=== PATIENT | male | born 1975 | race Caucasian/White ===

== ENCOUNTER 2020-10-16 10:47 | Emergency (ER) | payer MEDICAID, OTHER, SELFPAY ==
--- NOTE | ~2020-10-16 | XR_ITS ---
EXAMINATION: XR LUMBOSACRAL SPINE CLINICAL INFORMATION: Low back pain COMPARISON: None TECHNIQUE: Three views of the lumbosacral spine. FINDINGS: There is normal lumbar segmentation with 5 nonrib-bearing lumbar vertebrae of normal height and normal lumbar lordosis. There is no lumbar vertebral compression, spondylolisthesis, disc narrowing, or destructive process. There is mild anterior vertebral spurring L4 and L5. The SI joints and visualized sacrum are unremarkable. Visualized bowel gas unremarkable.. XR/XR lumbar spine 2-3V IMPRESSION: Unremarkable examination.
[2020-10-16 11:46] VITALS: BP 129/93; PULSE 100; RESP 18; TEMP 36.6; O2SAT 98; BMI 30.9
[2020-10-16 11:59] LABS: Glucose, Whole Blood 381 mg/dL (60-115)
[2020-10-16 12:03] LABS: Glucose Urine UA >=1000 MG/DL (NEG); Leukocyte Esterase Urine NEG (NEG); Nitrite Urine NEG (NEG); Urine Blood NEG (NEG); Urine Ketones NEG (NEG); Urine Protein NEG (NEG-TRACE)
[2020-10-16 12:04] LABS: Appearance Urine CLEAR; Color Urine YELLOW
[2020-10-16 12:15] LABS: RBC Urine 0-2 /HPF (0); Squamous Epithelial Cell Urine 1+ /LPF; WBC Urine 0-2 /HPF (0-4)
--- NOTE | 2020-10-16 12:55 | ED_ITS ---
HPI - General Adult General Chief complaint: General Medical Stated complaint: body pain Time Seen by Provider: 10/16/20 12:49 Source: patient Mode of arrival: ambulatory Limitations: no limitations History of Present Illness HPI narrative: 44 yo male 3 years of polyuria, polydipsia, weight loss, low back pain, tingling - found to have BS in 300s, did not have health insurance complaint: body aches Onset (ago): year(s) (3) Severity: moderate Quality: other (feels tingly) Pain Consistency: constant Relieving factors: none Exacerbating factors: none Associated symptoms: other (polyuria, weight loss, polydipsia, low back pain, feels his body is tingly, also wants STI testing but no symptoms) Treatments prior to arrival: none Related Data Previous Rx's Medication Instructions Recorded metformin 500 mg PO BID 30 Days #60 tab 10/16/20 Allergies Allergy/AdvReac Type Severity Reaction Status Date / Time Penicillins Allergy Unknown Verified 10/16/20 11:51 Review of Systems Review of Systems: Constitutional : pos Weight loss, No Fever, No Chills, No Fatigue, No Malaise ENT/Mouth : No sore throat, No Rhinorrhea Eyes: No Eye Pain, No Swelling, No Redness Cardiovascular : No Chest Pain, No SOB, No Dyspnea on Exertion, No Orthopnea, No Edema, No Palpitations Respiratory : No Cough, No Sputum, No Wheezing Gastrointestinal : No Nausea, No Vomiting, No Diarrhea, No Constipation, No abdominal Pain, No Hematochezia, No Melena Genitourinary : No Dysuria, No Urinary Frequency, No Hematuria, Musculoskeletal : No joint pain, pos Myalgias, No Joint Swelling Skin : No Skin Lesions, No rash Neuro : No Weakness, No Numbness, No Dizziness, No Headache, pos parasthesias Psych : No Anxiety/Panic, No Depression Heme/Lymph: No Bruising, No Bleeding,No Lymphadenopathy Endocrine : pos Polyuria, pos Polydipsia All other systems reviewed and are negative [facility] Past Medical History Attestation statement: The following information was validated with the patient. Medical History No known health problems Social History Social History (Updated 10/16/20 @ 13:30 by Elvia Lockhart DO) Alcohol intake: current Smoking Status: Never smoker Advance Directives: No Advance Directives Information Provided: No Physical Exam Vital Signs: Vital Signs: Last Vital Signs Temp 98 F 10/16/20 11:46 Pulse 100 10/16/20 11:46 Resp 18 10/16/20 11:46 BP 129/93 H 10/16/20 11:46 Pulse Ox 98 10/16/20 11:46 Body Mass Index 30.9 Appearance: Alert. Oriented X3. No acute distress. Anxious Eyes: Pupils equal, round and reactive to light. ENT: Pharynx normal. Neck: Normal inspection. Neck supple. CVS: Normal heart rate and rhythm. Pulses normal. Respiratory: No respiratory distress. Breath sounds normal. Abdomen: Soft and nontender. Skin: Skin warm and dry. Normal skin color. Normal skin turgor. Extremities: No lower extremity edema. No calf ttp Neuro: Oriented X 3. No motor deficit. No sensory deficit. Course Course Course Narrative: CM involved to help patient with insurance given no PCP will start on metformin at this time can go to [facility] per for OTC supplies Medical Decision Making MDM Narrative Medical decision making narrative: 44 yo male 3 years of polyuria, polydipsia, weight loss, low back pain, tingling - found to have BS in 300s, did not have health insurance at this time will need labs, hemoglobin A1c, lumbar spine films, likely start on DM medications and refer to PCP, he is requesting STI testing from a remote unprotected sexual encounter without symptoms, dispo per results and findings. Lab Data Result diagrams: 10/16/20 13:23 10/16/20 13:23 Labs: Lab Results 10/16/20 10/16/20 10/16/20 Range/Units 11:45 11:54 13:18 WBC (4.8-10.8) X10*3/uL RBC (4.60-5.80) X10*6/uL Hgb (14.0-18.0) g/dl Hct (42-52) % MCV (80-98) fL MCH (27.0-33.0) pg MCHC (31.0-36.0) g/dl RDW (11.0-16.0) % Plt Count (160-400) X10*3/uL MPV (9.4-12.4) fL Immature Gran % (Auto) (0.0-0.4) % Neut % (Auto) (45-73) % Lymph % (Auto) (20-40) % [place] % (Auto) (2-11) % Eos % (Auto) (0-4) % Baso % (Auto) (0-2) % Lymph # (Auto) (1.2-4.9) X10*3/uL [place] # (Auto) (0.1-1.2) X10*3/uL Eos # (Auto) (0.0-0.4) X10*3/uL Baso # (Auto) (0.0-0.2) X10*3/uL Abs Immat Gran (auto) (0.00-0.03) X10*3/uL Absolute Neuts (auto) (2.0-8.3) X10*3/uL Absolute Nucleated RBC (0.0-0.012) X10*3/uL Nucleated RBC % (auto) (0.0-0.2) /100WBC Hold Blue Top Sodium (135-145) mmol/L Potassium (3.3-5.1) mmol/L Chloride (96-108) mmol/L Carbon Dioxide (22-29) mmol/L Anion Gap (12-20) BUN (9-16) mg/dL Creatinine (0.5-1.4) mg/dL Estim Creat Clear Calc Estimated GFR POC Glucose 381 H* (60-115) mg/dL Random Glucose (60-115) mg/dL Estimat Average Glucose mg/dL Hemoglobin A1c % % Calcium (8.4-10.2) mg/dL Magnesium (1.6-2.6) mg/dL Total Bilirubin (0.0-1.0) mg/dL Direct Bilirubin (0.0-0.5) mg/dL AST (5-37) U/L ALT (0-40) U/L Alkaline Phosphatase (39-117) U/L Total Creatine Kinase (38-174) U/L Total Protein (6.5-8.0) g/dL Albumin (3.5-5.0) g/dL Lipase (8-78) U/L Urine Color YELLOW Urine Appearance CLEAR Urine pH 6.0 (5.0-8.0) Ur Specific [place] 1.020 (1.005-1.025) Urine Protein NEG (NEG-TRACE) MG/DL Urine Glucose (UA) >=1000 H (NEG) MG/DL Urine Ketones NEG (NEG) MG/DL Urine Blood NEG (NEG) Urine Nitrite NEG (NEG) Ur Leukocyte Esterase NEG (NEG) Urine RBC 0-2 (0) /HPF Urine WBC 0-2 (0-4) /HPF Ur Squamous Epith Cells 1+ /LPF Urine Bacteria NONE /LPF Acetone, Qual (Negative) COVID-19 (YAN) Negative (Negative) COVID-19 Clin Com See Note 10/16/20 10/16/20 10/16/20 Range/Units 13:23 13:23 13:23 WBC 8.0 (4.8-10.8) X10*3/uL RBC 6.13 H (4.60-5.80) X10*6/uL Hgb 17.7 (14.0-18.0) g/dl Hct 51.2 (42-52) % MCV 83.5 (80-98) fL MCH 28.9 (27.0-33.0) pg MCHC 34.6 (31.0-36.0) g/dl RDW 11.5 (11.0-16.0) % Plt Count 330 (160-400) X10*3/uL MPV 9.6 (9.4-12.4) fL Immature Gran % (Auto) 1.0 H (0.0-0.4) % Neut % (Auto) 53.7 (45-73) % Lymph % (Auto) 35.4 (20-40) % [place] % (Auto) 6.8 (2-11) % Eos % (Auto) 1.8 (0-4) % Baso % (Auto) 1.3 (0-2) % Lymph # (Auto) 2.8 (1.2-4.9) X10*3/uL [place] # (Auto) 0.5 (0.1-1.2) X10*3/uL Eos # (Auto) 0.1 (0.0-0.4) X10*3/uL Baso # (Auto) 0.1 (0.0-0.2) X10*3/uL Abs Immat Gran (auto) 0.08 H (0.00-0.03) X10*3/uL Absolute Neuts (auto) 4.3 (2.0-8.3) X10*3/uL Absolute Nucleated RBC 0.000 (0.0-0.012) X10*3/uL Nucleated RBC % (auto) 0.0 (0.0-0.2) /100WBC Hold Blue Top SEE NOTE Sodium (135-145) mmol/L Potassium (3.3-5.1) mmol/L Chloride (96-108) mmol/L Carbon Dioxide (22-29) mmol/L Anion Gap (12-20) BUN (9-16) mg/dL Creatinine (0.5-1.4) mg/dL Estim Creat Clear Calc Estimated GFR POC Glucose (60-115) mg/dL Random Glucose (60-115) mg/dL Estimat Average Glucose 338 mg/dL Hemoglobin A1c % 13.4 % Calcium (8.4-10.2) mg/dL Magnesium (1.6-2.6) mg/dL Total Bilirubin (0.0-1.0) mg/dL Direct Bilirubin (0.0-0.5) mg/dL AST (5-37) U/L ALT (0-40) U/L Alkaline Phosphatase (39-117) U/L Total Creatine Kinase (38-174) U/L Total Protein (6.5-8.0) g/dL Albumin (3.5-5.0) g/dL Lipase (8-78) U/L Urine Color Urine Appearance Urine pH (5.0-8.0) Ur Specific [place] (1.005-1.025) Urine Protein (NEG-TRACE) MG/DL Urine Glucose (UA) (NEG) MG/DL Urine Ketones (NEG) MG/DL Urine Blood (NEG) Urine Nitrite (NEG) Ur Leukocyte Esterase (NEG) Urine RBC (0) /HPF Urine WBC (0-4) /HPF Ur Squamous Epith Cells /LPF Urine Bacteria /LPF Acetone, Qual (Negative) COVID-19 (YAN) (Negative) COVID-19 Clin Com 10/16/20 Range/Units 13:23 WBC (4.8-10.8) X10*3/uL RBC (4.60-5.80) X10*6/uL Hgb (14.0-18.0) g/dl Hct (42-52) % MCV (80-98) fL MCH (27.0-33.0) pg MCHC (31.0-36.0) g/dl RDW (11.0-16.0) % Plt Count (160-400) X10*3/uL MPV (9.4-12.4) fL Immature Gran % (Auto) (0.0-0.4) % Neut % (Auto) (45-73) % Lymph % (Auto) (20-40) % [place] % (Auto) (2-11) % Eos % (Auto) (0-4) % Baso % (Auto) (0-2) % Lymph # (Auto) (1.2-4.9) X10*3/uL [place] # (Auto) (0.1-1.2) X10*3/uL Eos # (Auto) (0.0-0.4) X10*3/uL Baso # (Auto) (0.0-0.2) X10*3/uL Abs Immat Gran (auto) (0.00-0.03) X10*3/uL Absolute Neuts (auto) (2.0-8.3) X10*3/uL Absolute Nucleated RBC (0.0-0.012) X10*3/uL Nucleated RBC % (auto) (0.0-0.2) /100WBC Hold Blue Top Sodium 134 L (135-145) mmol/L Potassium 4.8 (3.3-5.1) mmol/L Chloride 98 (96-108) mmol/L Carbon Dioxide 26 (22-29) mmol/L Anion Gap 15 (12-20) BUN 12 (9-16) mg/dL Creatinine 0.99 (0.5-1.4) mg/dL Estim Creat Clear Calc 87.8 Estimated GFR > 60 POC Glucose (60-115) mg/dL Random Glucose 331 H (60-115) mg/dL Estimat Average Glucose mg/dL Hemoglobin A1c % % Calcium 9.8 (8.4-10.2) mg/dL Magnesium 2.2 (1.6-2.6) mg/dL Total Bilirubin 0.7 (0.0-1.0) mg/dL Direct Bilirubin 0.2 (0.0-0.5) mg/dL AST 17 (5-37) U/L ALT 40 (0-40) U/L Alkaline Phosphatase 104 (39-117) U/L Total Creatine Kinase 52 (38-174) U/L Total Protein 8.3 H (6.5-8.0) g/dL Albumin 4.9 (3.5-5.0) g/dL Lipase 14 (8-78) U/L Urine Color Urine Appearance Urine pH (5.0-8.0) Ur Specific [place] (1.005-1.025) Urine Protein (NEG-TRACE) MG/DL Urine Glucose (UA) (NEG) MG/DL Urine Ketones (NEG) MG/DL Urine Blood (NEG) Urine Nitrite (NEG) Ur Leukocyte Esterase (NEG) Urine RBC (0) /HPF Urine WBC (0-4) /HPF Ur Squamous Epith Cells /LPF Urine Bacteria /LPF Acetone, Qual Negative (Negative) COVID-19 (YAN) (Negative) COVID-19 Clin Com Discharge Plan Discharge Clinical Impression: Diabetes Qualifiers: Diabetes mellitus type: type 2 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
[2020-10-16] MEDS: 0.9 % Sodium Chloride 1,000 ML 999 ML IVCONT (13:25)
[2020-10-16 13:35] LABS: MANUAL DIFF FLAG NO
[2020-10-16 13:36] LABS: Basophils Absolute Auto 0.1 X10*3/uL (0.0-0.2); Basophils Percent Auto 1.3 % (0-2); Eosinophils Absolute Auto 0.1 X10*3/uL (0.0-0.4); Eosinophils Percent Auto 1.8 % (0-4); Hematocrit 51.2 % (42-52); Hemoglobin 17.7 g/dl (14.0-18.0); Imm Gran Abs Auto 0.08 X10*3/uL (0.00-0.03); Lymphocytes Absolute Auto 2.8 X10*3/uL (1.2-4.9); Lymphocytes Percent Auto 35.4 % (20-40); Mean Corpuscular HGB Conc 34.6 g/dl (31.0-36.0); Mean Corpuscular Hemoglobin 28.9 pg (27.0-33.0); Mean Corpuscular Volume 83.5 fL (80-98); Mean Platelet Volume 9.6 fL (9.4-12.4); Monocytes Absolute Auto 0.5 X10*3/uL (0.1-1.2); Monocytes Percent Auto 6.8 % (2-11); Neutrophils Absolute Auto 4.3 X10*3/uL (2.0-8.3); Neutrophils Percent Auto 53.7 % (45-73); Platelet Count 330 X10*3/uL (160-400); Red Blood Count 6.13 X10*6/uL (4.60-5.80); Red Cell Distribution Width 11.5 % (11.0-16.0)
[2020-10-16 13:53] LABS: COVID-19 Test Negative (Negative); IDNOW Serial# 9DD0AD1C
[2020-10-16 14:03] LABS: Estimated Average Glucose 338 mg/dL; Hemoglobin A1c % 13.4 %
[2020-10-16 14:05] LABS: Alanine Aminotransferase 40 U/L (0-40); Albumin Level 4.9 g/dL (3.5-5.0); Alkaline Phosphatase 104 U/L (39-117); Anion Gap 15 (12-20); Aspartate Amino Transferase 17 U/L (5-37); Bilirubin Direct 0.2 mg/dL (0.0-0.5); Bilirubin Total 0.7 mg/dL (0.0-1.0); Blood Urea Nitrogen 12 mg/dL (9-16); Calcium 9.8 mg/dL (8.4-10.2); Carbon Dioxide 26 mmol/L (22-29); Chloride 98 mmol/L (96-108); Creatinine Clr Calc Pharmacy 87.8; Estimated Glomerular Filt Rate > 60; Glucose Random 331 mg/dL (60-115); Lipase 14 U/L (8-78); Magnesium 2.2 mg/dL (1.6-2.6); Potassium 4.8 mmol/L (3.3-5.1); Sodium 134 mmol/L (135-145); Total Protein 8.3 g/dL (6.5-8.0)
--- NOTE | 2020-10-16 14:27 | MHC.CM.ED ---
Received case management consult from Dr Lockhart. Patient came to ER due to body pain. Patient has a history of DM but has no insurance or glucometer. Patient stated he applied for [employer] but it is not active. T/W forwarded patient information to Kimberly in [employer]. Spoke with patient. Information on [employer] provided. T/W also explained a glucometer, test strips and lancets can be purchased over the counter at [facility] for about $20. Patient verbalized understanding. Continue to monitor for d/c needs.
[2020-10-16 14:35] LABS: Acetone, serum QL Negative (Negative)
[2020-10-16 15:15] VITALS: BP 147/90; PULSE 78; RESP 14; TEMP 36.6; O2SAT 97
[2020-10-16 15:17] LABS: Glucose, Whole Blood 267 mg/dL (60-115)
[2020-10-17 01:09] LABS: CT PCR NOT DETECTED (Not Detect.); NG PCR NOT DETECTED (Not Detect.)
== END 2020-10-16 15:16 | disposition home or self-care (01) ==
PROVIDERS: Emergency Provider Emergency Medicine
DX: E11.65 Type 2 diabetes mellitus with hyperglycemia (principal); M79.10 Myalgia, unspecified site; Z20.822 Contact with and (suspected) exposure to COVID-19; Z11.3 Encounter for screening for infections with a predominantly sexual mode of transmission
CPT/HCPCS: 36415; 72100; 80048; 80076; 81001; 81003; 82009; 82550; 82947; 83036; 83690; 83735; 85025; 87491; 87591; 87635; 96360; 99284; 99285

== ENCOUNTER 2021-12-23 11:27 | Outpatient (REF) | payer MEDICAID, OTHER, SELFPAY ==
--- NOTE | ~2021-12-23 | XR_ITS ---
EXAMINATION: XR SHOULDER, LEFT CLINICAL INFORMATION: Pain. COMPARISON: None TECHNIQUE: AP external rotation, Grashey, scapular Y, and axillary views of the left shoulder. FINDINGS: There is no evidence of acute fracture or dislocation of the left shoulder. Glenohumeral joint appears unremarkable. Some pit erosions are seen about the humeral head as well as calcific tendinitis. There is mild narrowing with spurring involving the left acromioclavicular joint. XR/XR shoulder LT min 2V IMPRESSION: Mild degenerative change as described with calcific tendinitis.
== END 2021-12-23 11:28 | disposition home or self-care (01) ==
LOC: HO.XRAY 11:27
PROVIDERS: Visit Provider Registered Nurse Community Health
DX: M25.512 Pain in left shoulder (principal)
CPT/HCPCS: 73030

== ENCOUNTER 2022-05-03 08:34 | Inpatient (IN) | payer MEDICAID, OTHER, SELFPAY ==
--- NOTE | ~2022-05-03 | CT_ITS ---
EXAMINATION: CT ABDOMEN AND PELVIS WITHOUT CONTRAST CLINICAL INFORMATION: Left lower quadrant pain with dysuria and frequency COMPARISON: None TECHNIQUE: Multidetector volumetric imaging was performed from the superior aspect of the liver through the pubic symphysis. Sagittal and coronal reformatted images were obtained on the technologist's workstation. This CT examination was performed using dose optimization techniques as appropriate, variously including the following: *Automated exposure control *Adjustment of mA and/or kV according to patient size (this includes techniques or standardized protocols for targeted exams where dose is matched to indication/reason for exam; i.e. extremities or head) *Use of iterative reconstruction technique DLP: 719 mGy-cm FINDINGS: Visualized lung bases demonstrate mild dependent atelectasis. The liver is mildly enlarged and demonstrates diffusely decreased attenuation. The gallbladder is normal in appearance. The pancreas, spleen and adrenal glands are unremarkable. Symmetrically sized kidneys. No renal calculi or hydronephrosis of either kidney. Normal caliber loops of small and large bowel. Mild colonic stool burden. Mild colonic diverticulosis without CT evidence to suggest active diverticulitis. Normal appendix. Normal caliber abdominal aorta. No retroperitoneal lymphadenopathy. The bladder is underdistended and therefore not optimally characterized. There is suggestion of mild diffuse bladder wall thickening. There is mild fat stranding adjacent to the bladder, nonspecific. The prostate gland is enlarged measuring 6.6 cm in transverse dimension. There is no well organized pelvic fluid collection. No inguinal lymphadenopathy. Mild to moderate diffuse degenerative changes of the spine. CT/CT abdomen pelvis wo IV con IMPRESSION: -The bladder is underdistended and therefore not optimally characterized. There is suggestion of mild diffuse bladder wall thickening. There is mild fat stranding adjacent to the bladder which is nonspecific. Given provided clinical information, imaging findings may represent cystitis. Clinical correlation is recommended. Correlation with urinary analysis likely warranted. -Enlarged prostate gland. -Colonic diverticulosis. -Diffusely decreased liver attenuation suggesting hepatic steatosis. Correlation with liver enzymes recommended. Fleischner guidelines were followed.
[2022-05-03 08:36] VITALS: BP 139/98; PULSE 131; RESP 20; TEMP 36.9; O2SAT 100; BMI 29.1
--- NOTE | 2022-05-03 09:19 | ED.MALEGU ---
HPI - Male Genitourinary General Chief complaint: Urogenital-Male Stated complaint: urine infection Time Seen by Provider: 05/03/22 08:53 Source: patient Mode of arrival: ambulatory Limitations: no limitations History of Present Illness HPI Narrative: 46-year-old male presented for evaluation of dysuria and increased frequency urination. 46-year-old male with history of diabetes prone to UTI and ear infections presented with 2 days of increased urinary frequency with dysuria and foul odor urine patient been having lower abdominal pain only with urination, no fever, no chills patient started himself on left over amoxicillin for his symptoms with persistent and worsening of the symptoms. Related Data Home Medications Medication Instructions Recorded Confirmed albuterol sulfate 90 mcg/actuation 2 puff inhalation Q4-6H PRN 05/03/22 aerosol inhaler (ProAir HFA) Shortness Of Breath Or Wheezing atorvastatin 20 mg tablet 1 tab PO QPM 05/03/22 gabapentin 600 mg tablet mg PO 05/03/22 Previous Rx's Medication Instructions Recorded metformin 500 mg tablet 500 mg PO BID 30 days #60 tabs 10/16/20 Allergies Allergy/AdvReac Type Severity Reaction Status Date / Time Penicillins Allergy Unknown Verified 10/16/20 11:51 Review of Systems Review of Systems: All other systems are reviewed and are negative Constitutional: Reports as per HPI and Reports no additional constitutional complaints Eyes: Reports as per HPI and Reports no additional eye complaints Reports system reviewed and no additional complaints, except as documented Cardiovascular: Reports as per HPI and Reports no additional cardiovascular complaints Respiratory: Reports as per HPI and Reports no additional respiratory complaints Gastrointestinal: Reports as per HPI and Reports no additional gastrointestinal complaints Genitourinary: Reports no additional female genitourinary complaints Musculoskeletal: Reports no additional musculoskeletal complaints Skin/Breast: Reports system reviewed and no additional complaints, except as docu Psychiatric: Reports no additional psychiatric complaints Endocrine: Reports no additional endocrine complaints Hematologic/Lymphatic: Reports no additional hematologic/lymphatic complaints Allergic/Immunologic: Reports no additional allergic/immunologic complaints Reports system reviewed and no additional complaints, except as documented and Reports Abnormal speech present [facility] Past Medical History Medical History No known health problems Social History Social History Alcohol intake: never Smoked in Last 30 Days: No Advance Directives: No Advance Directives Information Provided: Yes Physical Exam Vital Signs: Vital Signs: Last Vital Signs Temp 101.9 F H 05/03/22 09:23 Pulse 125 H 05/03/22 09:23 Resp 16 05/03/22 09:23 BP 143/83 H 05/03/22 09:23 Pulse Ox 96 05/03/22 09:23 O2 Del Method 05/03/22 09:23 BMI result Body Mass Index 29.1 Vital signs have been reviewed as appeared to be correct. Blood pressure normal. Heart rate normal. Respiration rate normal. Temperature normal. Oxygen saturation normal. Appearance: Alert. Oriented X3. No acute distress. Head: Normal external exam. Normocephalic. Atraumatic. No Esquivel signs noted. No raccoon eyes noted Eyes: PERRLA. EOMI. Conjunctiva and sclera normal. Eyelids normal. ENT: TM's Normal. Pharynx normal. Uvula midline. Moist mucous membranes. No trismus noted. No drooling noted. No muffled voice noted. Neck: Normal inspection. Neck supple. FROM. No adenopathy. Thyroid Normal. No meningeal signs. No neck mass noted. CVS: Normal heart rate and rhythm. Heart sound normal. No murmurs noted. Pulses normal throughout. Respiratory: No respiratory distress. Painless inspiration. Breath sounds normal. No wheezes/rales/rhonchi noted. Chest nontender. No accessory muscle usage noted or decreased air movement noted. Abdomen: Soft, left lower quadrant tenderness, no rebound tenderness, no guarding. Bowel sounds normal in all 4 quadrants. No distention noted. No organomegaly noted. No visible injury noted. Rectal exam: Enlarged prostate with significant tenderness to touch. Back: No CVA tenderness. Full range of motion noted. Skin: Skin warm and dry. Normal skin color. Normal skin turgor. No rashes/lesions/lacerations noted. Extremities: No lower extremity edema. Extremities exhibit normal range of motion. Extremities nontender. Neuro: Oriented X 3. Cranial nerve exam: II-XII are grossly intact No motor deficit. No sensory deficit. Reflexes normal. Course Course Course Narrative: [age] year male diabetic prone to UTI/ear infections declined risk for STD (sexually not active for 1 year, and has no urethral discharge). Physical exam is consistent with prostatitis patient tried oral Augmentin for few days with worsening of his symptoms. Patient met criteria for SIRS will start the patient on ceftriaxone IV and IV fluid and will admit. Medications Administered Discontinued Medications Generic Name Dose Route Start Last Admin Trade Name Mary PRN Reason Stop Dose Admin Acetaminophen 650 mg 05/03/22 09:56 05/03/22 11:36 Acetaminophen 325 Mg Tablet PO 05/03/22 09:57 650 mg ONCE ONE Administration Sodium Chloride 2,381.37 mls @ 2,381.37 mls/hr 05/03/22 09:56 05/03/22 11:35 Ns 30 ml/kg infuse over 1 hr (2381.37 ml) 05/03/22 10:55 2,381.37 mls/hr IV Administration .Q1H STA Levofloxacin 750 mg in 150 mls @ 100 mls/hr 05/03/22 09:56 05/03/22 11:35 Levaquin IV 05/03/22 11:25 100 mls/hr ONCE ONE Administration MDM - Male Genitourinary Medical Records Attestation: I reviewed the patient's medical records. Lab Data Attestation: I reviewed the patient's lab results. Result diagrams: 05/03/22 11:11 05/03/22 11:11 Labs: Lab Results 05/03/22 05/03/22 05/03/22 Range/Units 11:11 11:11 11:11 WBC 17.4 H (4.8-10.8) X10*3/uL RBC 5.39 (4.60-5.80) X10*6/uL Hgb 15.5 (14.0-18.0) g/dl Hct 46.2 (42.0-52.0) % MCV 85.7 (80.0-98.0) fL MCH 28.8 (27.0-33.0) pg MCHC 33.5 (31.0-36.0) g/dl RDW 12.4 (11.0-16.0) % Plt Count 292 (160-400) X10*3/uL MPV 8.8 L (9.4-12.4) fL Immature Gran % (Auto) 0.9 H (0.0-0.4) % Neut % (Auto) 80.3 H (45-73) % Lymph % (Auto) 10.1 L (20-40) % [place] % (Auto) 8.1 (2-11) % Eos % (Auto) 0.1 (0-4) % Baso % (Auto) 0.5 (0-2) % Lymph # (Auto) 1.8 (1.2-4.9) X10*3/uL [place] # (Auto) 1.4 H (0.1-1.2) X10*3/uL Eos # (Auto) 0.0 (0.0-0.4) X10*3/uL Baso # (Auto) 0.1 (0.0-0.2) X10*3/uL Abs Immat Gran (auto) 0.16 H (0.00-0.03) X10*3/uL Absolute Neuts (auto) 13.9 H (2.0-8.3) x10*3/uL Absolute Nucleated RBC 0.000 (0.0-0.012) X10*3/uL Nucleated RBC % (auto) 0.0 (0.0-0.2) /100WBC Sodium 135 (135-145) mmol/L Potassium 4.5 (3.3-5.1) mmol/L Chloride 99 (96-108) mmol/L Carbon Dioxide 26 (22-29) mmol/L Anion Gap 15 (12-20) BUN 11 (9-16) mg/dL Creatinine 0.84 (0.5-1.4) mg/dL Estim Creat Clear Calc 105.5 Estimated GFR > 60 Random Glucose 132 H (60-115) mg/dL Lactic Acid (0.5-2.0) mmol/L Calcium 9.3 (8.4-10.2) mg/dL Total Bilirubin 1.4 H (0.0-1.0) mg/dL Direct Bilirubin 0.5 (0.0-0.5) mg/dL AST 19 (5-37) U/L ALT 43 H (0-40) U/L Alkaline Phosphatase 115 (39-117) U/L Total Protein 8.0 (6.5-8.0) g/dL Albumin 4.4 (3.5-5.0) g/dL Lipase 10 (8-78) U/L Urine Color Dark Yellow Urine Appearance Clear Urine pH 5.5 (5.0-9.0) Ur Specific [place] >= 1.030 H (1.005-1.025) Urine Protein 30 (1+) H (Neg-Trace) mg/dL Urine Glucose (UA) Negative (Negative) mg/dL Urine Ketones Trace (Negative) mg/dL Urine Blood Negative (Negative) Urine Nitrite Negative (Negative) Ur Leukocyte Esterase Moderate (2+) H (Negative) Urine RBC 3-5 H (0-2) /HPF Urine WBC >50 H (0-5) /HPF Ur Squamous Epith Cells 0-2 (0-2) /HPF Urine Bacteria None Seen (None Seen) Hyaline Casts 0-2 (0-2) /LPF 05/03/ Range/Units 11:12 WBC (4.8-10.8) X10*3/uL RBC (4.60-5.80) X10*6/uL Hgb (14.0-18.0) g/dl Hct (42.0-52.0) % MCV (80.0-98.0) fL MCH (27.0-33.0) pg MCHC (31.0-36.0) g/dl RDW (11.0-16.0) % Plt Count (160-400) X10*3/uL MPV (9.4-12.4) fL Immature Gran % (Auto) (0.0-0.4) % Neut % (Auto) (45-73) % Lymph % (Auto) (20-40) % [place] % (Auto) (2-11) % Eos % (Auto) (0-4) % Baso % (Auto) (0-2) % Lymph # (Auto) (1.2-4.9) X10*3/uL [place] # (Auto) (0.1-1.2) X10*3/uL Eos # (Auto) (0.0-0.4) X10*3/uL Baso # (Auto) (0.0-0.2) X10*3/uL Abs Immat Gran (auto) (0.00-0.03) X10*3/uL Absolute Neuts (auto) (2.0-8.3) x10*3/uL Absolute Nucleated RBC (0.0-0.012) X10*3/uL Nucleated RBC % (auto) (0.0-0.2) /100WBC Sodium (135-145) mmol/L Potassium (3.3-5.1) mmol/L Chloride (96-108) mmol/L Carbon Dioxide (22-29) mmol/L Anion Gap (12-20) BUN (9-16) mg/dL Creatinine (0.5-1.4) mg/dL Estim Creat Clear Calc Estimated GFR Random Glucose (60-115) mg/dL Lactic Acid 1.5 (0.5-2.0) mmol/L Calcium (8.4-10.2) mg/dL Total Bilirubin (0.0-1.0) mg/dL Direct Bilirubin (0.0-0.5) mg/dL AST (5-37) U/L ALT (0-40) U/L Alkaline Phosphatase (39-117) U/L Total Protein (6.5-8.0) g/dL Albumin (3.5-5.0) g/dL Lipase (8-78) U/L Urine Color Urine Appearance Urine pH (5.0-9.0) Ur Specific [place] (1.005-1.025) Urine Protein (Neg-Trace) mg/dL Urine Glucose (UA) (Negative) mg/dL Urine Ketones (Negative) mg/dL Urine Blood (Negative) Urine Nitrite (Negative) Ur Leukocyte Esterase (Negative) Urine RBC (0-2) /HPF Urine WBC (0-5) /HPF Ur Squamous Epith Cells (0-2) /HPF Urine Bacteria (None Seen) Hyaline Casts (0-2) /LPF Imaging Data Abdomen pelvis CT: Attestation: I personally reviewed and interpreted this imaging study as follows: Radiologist's impression: -The bladder is underdistended and therefore not optimally characterized. There is suggestion of mild diffuse bladder wall thickening. There is mild fat stranding adjacent to the bladder which is nonspecific. Given provided clinical information, imaging findings may represent cystitis. Clinical correlation is recommended. Correlation with urinary analysis likely warranted. -Enlarged prostate gland. -Colonic diverticulosis. -Diffusely decreased liver attenuation suggesting hepatic steatosis. Correlation with liver enzymes recommended. ? Discharge Plan Discharge Clinical Impression: Acute prostatitis, SIRS (systemic inflammatory response syndrome) Patient Disposition: Admitted As Inpatient
[2022-05-03 09:23] VITALS: BP 143/83; PULSE 125; RESP 16; TEMP 38.8; O2SAT 96
[2022-05-03 11:19] LABS: MANUAL DIFF FLAG NO
[2022-05-03 11:21] LABS: Basophils Absolute Auto 0.1 X10*3/uL (0.0-0.2); Basophils Percent Auto 0.5 % (0-2); Eosinophils Percent Auto 0.1 % (0-4); Hematocrit 46.2 % (42.0-52.0); Hemoglobin 15.5 g/dl (14.0-18.0); Imm Gran Abs Auto 0.16 X10*3/uL (0.00-0.03); Imm Gran Pct Auto 0.9 % (0.0-0.4); Lymphocytes Absolute Auto 1.8 X10*3/uL (1.2-4.9); Lymphocytes Percent Auto 10.1 % (20-40); Mean Corpuscular HGB Conc 33.5 g/dl (31.0-36.0); Mean Corpuscular Hemoglobin 28.8 pg (27.0-33.0); Mean Corpuscular Volume 85.7 fL (80.0-98.0); Mean Platelet Volume 8.8 fL (9.4-12.4); Monocytes Absolute Auto 1.4 X10*3/uL (0.1-1.2); Monocytes Percent Auto 8.1 % (2-11); Neutrophils Absolute Auto 13.9 x10*3/uL (2.0-8.3); Neutrophils Percent Auto 80.3 % (45-73); Platelet Count 292 X10*3/uL (160-400); Red Blood Count 5.39 X10*6/uL (4.60-5.80); Red Cell Distribution Width 12.4 % (11.0-16.0); White Blood Count 17.4 X10*3/uL (4.8-10.8)
[2022-05-03 11:22] LABS: Appearance Urine Clear; Color Urine Dark Yellow; Glucose Urine UA Negative (Negative); Leukocyte Esterase Urine Moderate (2+) (Negative); Nitrite Urine Negative (Negative); PH 5.5 (5.0-9.0); Specific Gravity - Urine >= 1.030 (1.005-1.025); UMIC TRIGGER UACC YES; Urine Blood Negative (Negative); Urine Ketones Trace mg/dL (Negative); Urine Protein 30 (1+) mg/dL (Neg-Trace)
[2022-05-03 11:25] LABS: Bacteria Urine None Seen (None Seen); Hyaline Casts Urine 0-2 /LPF (0-2); Squamous Epithelial Cell Urine 0-2 /HPF (0-2); UACC Culture Trigger YES; WBC Urine >50 /HPF (0-5)
[2022-05-03 11:30] LABS: Lactic Acid 1.5 mmol/L (0.5-2.0)
[2022-05-03] MEDS: levoFLOXacin/D5W 750 MG/150 ML PIGGYBACK 100 MG IV (11:35)
[2022-05-03] MEDS: 0.9 % Sodium Chloride 2,381.37 ML 2381.37 ML IV (11:35)
[2022-05-03 11:36] LABS: Alanine Aminotransferase 43 U/L (0-40); Albumin Level 4.4 g/dL (3.5-5.0); Alkaline Phosphatase 115 U/L (39-117); Anion Gap 15 (12-20); Aspartate Amino Transferase 19 U/L (5-37); Bilirubin Direct 0.5 mg/dL (0.0-0.5); Bilirubin Total 1.4 mg/dL (0.0-1.0); Blood Urea Nitrogen 11 mg/dL (9-16); Calcium 9.3 mg/dL (8.4-10.2); Carbon Dioxide 26 mmol/L (22-29); Chloride 99 mmol/L (96-108); Creatinine Clr Calc Pharmacy 105.5; Estimated Glomerular Filt Rate > 60; Glucose Random 132 mg/dL (60-115); Lipase 10 U/L (8-78); Potassium 4.5 mmol/L (3.3-5.1); Sodium 135 mmol/L (135-145)
[2022-05-03] MEDS: Acetaminophen 325 MG TABLET 650 MG PO (11:36)
--- NOTE | 2022-05-03 11:40 | PC.NURSE ---
patient a/ox4 . valeriy . heart rate regular at 114 beats per minutes . breathing even and unlabored , lungs clear throughout . skin pink warm and dry . abdomen soft .positive bowel sounds throughout . patient reports constantly urinating , difficulty urinating , strong odor to urine since . IV place in left A.C patient medicated as ordered . albs drawn and sent . patient on aware of plan of care .
[2022-05-03 12:32] VITALS: BP 99/65; PULSE 109; RESP 15; TEMP 38.8; O2SAT 94
--- NOTE | 2022-05-03 12:39 | PC.NURSE ---
Hospitalist at bedside . patient aware of admission
[2022-05-03 12:54] LABS: COVID-19 Test Negative (Negative); IDNOW Serial# 16C4AD1C
--- NOTE | 2022-05-03 13:38 | PHA.MEDREC ---
Pharmacy Consult ? Medication Reconciliation Pharmacy has completed the medication reconciliation. Spoke to patient about home medications. He states that on top of normal meds taken at home he had leftover antibiotics that he told md about (they are noted in ED report) and that he also took advil pm last night for the pain but it didn't help.
--- NOTE | 2022-05-03 13:39 | P.HPHOSP_ITS ---
History of Present Illness Date of Service: 05/03/22 Attending physician on admission: Leon Bhagat Chief Complaint: Dysuria, decreased urinary output, urinary urgency 46-year-old male with history of [id number] type 2 diabetes, hyperlipidemia, diabetic neuropathy, mild intermittent asthma presented to the ED this morning for evaluation of urinary symptoms ongoing for the last 2 days. He is reporting suprapubic pressure during urination with limited urinary output, dysuria, increased urinary frequency, urinary urgency, as well as nausea. He has been able to tolerate liquids but has not been eating much due to the nausea but denies any associated vomiting. He denies any fevers at home, chills, abdominal pain, diarrhea, constipation, melena, hematochezia, rectal pressure, shortness of breath, chest pain. On arrival, patient febrile at 01:01 0.9, given 650 mg p.o. Tylenol. Tachycardic to 125. Initially BP 143/83, currently 99/65. No hypoxia. WBC 17.4. Creatinine 0.84, BUN 11, electrolyte levels normal. Glucose 132, bilirubin 1.4. UA significant for 2+ leukocytes, negative for blood, negative nitrites, no bacteria. Gonorrhea and chlamydia testing pending. On exam, ED provider noted enlarged, diffusely tender prostate. CT abdomen/pelvis with suggestion of mild diffuse bladder wall thickening with mild fat stranding adjacent to the bladder as well as enlarged prostate gland and colonic diverticulosis and hepatic steatosis. He has been given 2381 mL IV normal saline and 750 mg IV Levaquin to treat acute prostatitis. Patient should be admitted for acute prostatitis with sepsis. Review of Systems Review of Systems: General: No fevers, malaise, unintentional weight loss HEENT: No blurred vision, diplopia. Cardiovascular: No chest pain, palpitations, or leg edema Respiratory: No shortness of breath, wheezing, cough GI: +nausea, +anorexia. No abdominal pain, vomiting, diarrhea, constipation, melena, hematochezia : +dysuria, +urgency, +increased frequency, +decreased urinary output, +suprapubic pressure. No hematuria MSK: No myalgia, back pain Neuro: No headaches, weakness, paresthesias Skin: No rashes or lesions [facility] Medical History (Updated 05/03/22 @ 13:42 by BETHANY Cho) Asthma Diabetic neuropathy Hyperlipidemia Type 2 diabetes Family History (Updated 05/03/22 @ 13:46 by BETHANY Cho) Mother No pertinent family history Father No pertinent family history Social History Alcohol intake: never Smoked in Last 30 Days: No Advance Directives: No Advance Directives Information Provided: Yes Meds Allergies Allergy/AdvReac Type Severity Reaction Status Date / Time Penicillins Allergy Unknown Verified 10/16/20 11:51 Active Medications: Current Medications Acetaminophen (Acetaminophen 325 Mg Tablet) 650 mg PO Q6H PRN PRN Reason: Pain, Mild, fever Dextrose (Dextrose 50 % 25 Gm/50 Ml Syringe) 25 gm IVPUSH Q15M PRN; Protocol PRN Reason: per Hypoglycemia Standing Ord. Docusate Sodium (Docusate Sodium 100 Mg Capsule) 100 mg PO DAILY PRN PRN Reason: Constipation Enoxaparin Sodium (Enoxaparin Sodium 40 Mg/0.4 Ml Syringe) 40 mg SUBCUT Q24H RADHA Glucose (Glucose Gel 15 Gm Gel..Gram.) 15 gm PO Q15M PRN; Protocol PRN Reason: per Hypoglycemia Standing Ord. Sodium Chloride (Ns) 1,000 mls @ 999 mls/hr IV .Q1H1M RADHA Stop: 05/03/22 14:30 Levofloxacin (Levaquin) 750 mg in 150 mls @ 100 mls/hr IV Q24H RADHA Insulin Human Lispro (Insulin Lispro 100 Unit/Ml 3 Ml Vial) 0 unit SUBCUT QIDACHS [facility]; Protocol Ondansetron HCl (Ondansetron Hcl 4 Mg/2 Ml Vial) 4 mg IVPUSH Q8H PRN PRN Reason: Nausea and Vomiting Pharmacy Consult (Consult Rx Perform Med Rec) 1 each MISCELLANE ONCE PRN PRN Reason: Consult order Sodium Chloride (0.9 % Sodium Chloride Flush 3 Ml Syringe) 3 ml IVFLUSH QSHIFT [facility] Home Medications Medication Instructions Recorded Confirmed Last Taken Type albuterol sulfate 90 mcg/actuation 2 puff inhalation Q4-6H PRN 05/03/22 05/03/22 Unknown History aerosol inhaler (ProAir HFA) Shortness Of Breath Or Wheezing atorvastatin 20 mg tablet 20 mg PO QPM 05/03/22 05/03/22 05/02/22 History gabapentin 300 mg capsule 300 mg PO DAILY@0900 05/03/22 05/03/22 05/02/22 History gabapentin 600 mg tablet 600 mg PO BEDTIME 05/03/22 05/03/22 05/02/22 History ibuprofen-diphenhydramine citrate 2 cap PO BEDTIME PRN Pain 05/03/22 05/03/22 05/02/22 History 200 mg-38 mg tablet (Advil PM) Physical Exam Vital Signs and Narrative: Vital Signs: Last Vital Signs Temp 101.9 F H 05/03/22 12:32 Pulse 109 H 05/03/22 12:32 Resp 15 05/03/22 12:32 BP 99/65 05/03/22 12:32 Pulse Ox 94 05/03/22 12:32 O2 Del Method 05/03/22 12:32 BMI result Body Mass Index 29.1 Constitutional - Awake and Alert, No apparent distress Eyes - PERRLA, EOMI Cardiovascular - S1S2, RRR, No edema Respiratory - Normal lung expansion, Normal respiratory effort, No respiratory distress, CTA bilaterally Gastrointestinal - LLQ ttp. ND; +BS; No rebound or guarding - No CVA tenderness Extremities - no calf tenderness bilaterally, no swelling Musculoskeletal - Normal inspection, normal ROM Skin - Warm/Dry Neurological - Alert & oriented x3, CN II-XII in tact, 5/5 strength BUE and BLE Psychological - Appropriate affect Results Labs CBC and Chem 7: 05/03/22 11:11 05/03/22 11:11 Labs: Laboratory Results - last 24 hr 05/03/22 05/03/22 05/03/22 11:11 11:11 11:11 MCV 85.7 MCH 28.8 MCHC 33.5 RDW 12.4 Plt Count 292 MPV 8.8 L Immature Gran % (Auto) 0.9 H Neut % (Auto) 80.3 H Lymph % (Auto) 10.1 L [place] % (Auto) 8.1 Eos % (Auto) 0.1 Baso % (Auto) 0.5 Lymph # (Auto) 1.8 [place] # (Auto) 1.4 H Eos # (Auto) 0.0 Baso # (Auto) 0.1 Abs Immat Gran (auto) 0.16 H Absolute Neuts (auto) 13.9 H Absolute Nucleated RBC 0.000 Nucleated RBC % (auto) 0.0 Anion Gap 15 Estim Creat Clear Calc 105.5 Estimated GFR > 60 Random Glucose 132 H Lactic Acid Calcium 9.3 Total Bilirubin 1.4 H Direct Bilirubin 0.5 AST 19 ALT 43 H Alkaline Phosphatase 115 Total Protein 8.0 Albumin 4.4 Lipase 10 Urine Color Dark Yellow Urine Appearance Clear Urine pH 5.5 Ur Specific [place] >= 1.030 H Urine Protein 30 (1+) H Urine Glucose (UA) Negative Urine Ketones Trace Urine Blood Negative Urine Nitrite Negative Ur Leukocyte Esterase Moderate (2+) H Urine RBC 3-5 H Urine WBC >50 H Ur Squamous Epith Cells 0-2 Urine Bacteria None Seen Hyaline Casts 0-2 COVID-19 (YAN) COVID-19 Clin Com 05/03/22 05/03/22 11:12 12:30 MCV MCH MCHC RDW Plt Count MPV Immature Gran % (Auto) Neut % (Auto) Lymph % (Auto) [place] % (Auto) Eos % (Auto) Baso % (Auto) Lymph # (Auto) [place] # (Auto) Eos # (Auto) Baso # (Auto) Abs Immat Gran (auto) Absolute Neuts (auto) Absolute Nucleated RBC Nucleated RBC % (auto) Anion Gap Estim Creat Clear Calc Estimated GFR Random Glucose Lactic Acid 1.5 Calcium Total Bilirubin Direct Bilirubin AST ALT Alkaline Phosphatase Total Protein Albumin Lipase Urine Color Urine Appearance Urine pH Ur Specific [place] Urine Protein Urine Glucose (UA) Urine Ketones Urine Blood Urine Nitrite Ur Leukocyte Esterase Urine RBC Urine WBC Ur Squamous Epith Cells Urine Bacteria Hyaline Casts COVID-19 (YAN) Negative COVID-19 Clin Com See Note Imaging Radiologist's Impressions: Impressions Abdomen/Pelvis CT 05/03/22 10:09 IMPRESSION: -The bladder is underdistended and therefore not optimally characterized. There is suggestion of mild diffuse bladder wall thickening. There is mild fat stranding adjacent to the bladder which is nonspecific. Given provided clinical information, imaging findings may represent cystitis. Clinical correlation is recommended. Correlation with urinary analysis likely warranted. -Enlarged prostate gland. -Colonic diverticulosis. -Diffusely decreased liver attenuation suggesting hepatic steatosis. Correlation with liver enzymes recommended. Fleischner guidelines were followed. Assessment and Plan (1) Acute prostatitis: Status: Acute (2) Sepsis: Status: Acute Plan 46-year-old male with history of [id number] type 2 diabetes, hyperlipidemia, diabetic neuropathy, mild intermittent asthma to be admitted for acute prostatitis with sepsis. #Sepsis- secondary to acute prostatitis -Tachycardic to 125 with fever 101.9, WBC 17.4. Lactic acid normal. No evidence end organ dysfunction or hypotension. No severe sepsis/shock -Admit to telemetry -Tylenol PRN for fever -Continue IVF, BP soft -Follow CBC #Acute prostatitis -UA with 2+ leuks, negative nitrites, negative blood, negative bacteria. However, significant diffuse ttp prostate on ED exam -UC and blood cultures pending. Gonorrhea/chlamydia cultures pending -IV levaquin. -Urology consult outpt unless not clinically improving -Admit to telemetry -Clear liquids due to ongoing nausea, decreased PO tolerance. PRN ondanstron. Advance as tolerated. Continue IVF #Type 2 diabetes- non insulin dependent without hyperglycemia -POC glucose -on Clears, transition to diabetic diet as tolerated -Humalog on SS -Hold metformin #Diabetic neuropathy -Continue gabapentin #Mild intermittent asthma- no acute exacerbation -albuterol prn #HLD -continue statin DVT prophylaxis- lovenox Full code Pt requires inpt stay at least 2 midnights due to acute prostatitis wtih sepsis requiring IVF and IV abx. Quality Stroke Does the patient have a stroke diagnosis?: No VTE Prior VTE?: No VTE Risk Level:: Medical - moderate - high VTE Device Contraindication: Treatment Not Indicated VTE Drug Contraindication: N/A - Med Ordered
[2022-05-03 13:53] LABS: CT PCR NOT DETECTED (Not Detect.); NG PCR NOT DETECTED (Not Detect.)
[2022-05-03] MEDS: Ibuprofen 600 MG TABLET PO (14:11)
[2022-05-03] MEDS: 0.9 % Sodium Chloride Flush 3 ML SYRINGE IVFLUSH ×2 (14:12→23:54)
[2022-05-03] MEDS: Enoxaparin Sodium 40 MG/0.4 ML SYRINGE SUBCUT (14:12)
[2022-05-03] MEDS: 0.9 % Sodium Chloride 1,000 ML 999 ML IV (14:12)
[2022-05-03 16:00] VITALS: BP 108/66; PULSE 89; RESP 20; TEMP 36.8; O2SAT 97
[2022-05-03 16:45] LABS: Glucose, Whole Blood 111 mg/dL (60-115)
[2022-05-03 20:00] VITALS: BP 116/69; PULSE 83; RESP 20; TEMP 37.2; O2SAT 97
[2022-05-03] MEDS: Atorvastatin Calcium 20 MG TABLET PO (20:25)
[2022-05-03] MEDS: Gabapentin 600 MG TABLET PO (20:25)
[2022-05-03 21:15] LABS: Glucose, Whole Blood 118 mg/dL (60-115)
--- NOTE | 2022-05-03 22:23 | PC.NURSE ---
2200 rounding done ,pt urinal empty ,fresh water given ,pt watching television ,call yo within reach .
[2022-05-04] VITALS (7 sets, daily range): BP systolic 108–128; BP diastolic 70–83; PULSE 80–96; RESP 14–22; TEMP 36.6–37.9; O2SAT 94–98
[2022-05-04] MEDS: Acetaminophen 325 MG TABLET 650 MG PO (03:45)
[2022-05-04 06:18] LABS: MANUAL DIFF FLAG NO
[2022-05-04 06:29] LABS: Basophils Absolute Auto 0.1 X10*3/uL (0.0-0.2); Basophils Percent Auto 0.6 % (0-2); Eosinophils Absolute Auto 0.2 X10*3/uL (0.0-0.4); Eosinophils Percent Auto 1.4 % (0-4); Hematocrit 40.5 % (42.0-52.0); Hemoglobin 13.5 g/dl (14.0-18.0); Imm Gran Abs Auto 0.11 X10*3/uL (0.00-0.03); Imm Gran Pct Auto 0.8 % (0.0-0.4); Lymphocytes Absolute Auto 2.4 X10*3/uL (1.2-4.9); Lymphocytes Percent Auto 17.3 % (20-40); Mean Corpuscular HGB Conc 33.3 g/dl (31.0-36.0); Mean Corpuscular Hemoglobin 28.7 pg (27.0-33.0); Mean Corpuscular Volume 86.2 fL (80.0-98.0); Mean Platelet Volume 8.9 fL (9.4-12.4); Monocytes Absolute Auto 1.3 X10*3/uL (0.1-1.2); Monocytes Percent Auto 9.3 % (2-11); Neutrophils Absolute Auto 9.7 x10*3/uL (2.0-8.3); Neutrophils Percent Auto 70.6 % (45-73); Platelet Count 267 X10*3/uL (160-400); Red Cell Distribution Width 12.1 % (11.0-16.0); White Blood Count 13.8 X10*3/uL (4.8-10.8)
[2022-05-04 06:39] LABS: Anion Gap 13 (12-20); Blood Urea Nitrogen 8 mg/dL (9-16); Calcium 8.4 mg/dL (8.4-10.2); Carbon Dioxide 23 mmol/L (22-29); Chloride 106 mmol/L (96-108); Creatinine Clr Calc Pharmacy 118.2; Estimated Glomerular Filt Rate > 60; Glucose Random 118 mg/dL (60-115); Potassium 4.1 mmol/L (3.3-5.1); Sodium 138 mmol/L (135-145)
[2022-05-04] MEDS: 0.9 % Sodium Chloride Flush 3 ML SYRINGE IVFLUSH ×3 (07:31→22:39)
[2022-05-04 07:56] LABS: Glucose, Whole Blood 112 mg/dL (60-115)
[2022-05-04] MEDS: Gabapentin 300 MG CAPSULE PO (08:26)
--- NOTE | 2022-05-04 09:36 | HO.PM.IMPN ---
Subjective Subjective Date of Service: 05/04/22 Interval History: Seen in follow-up for acute prostatitis with sepsis Interval history: Patient reports feeling much better. He is still experiencing some dysuria but feels this is improved compared to yesterday and also continues feeling bloated. He denies any hematuria, abdominal pain, nausea, vomiting, decreased urinary output, rectal pressure. He is tolerating clear liquids and would like to try eating. Review of Systems General: No fevers, malaise, unintentional weight loss HEENT: No blurred vision, diplopia. No sore throat, nasal congestion, rhinorrhea, sinus pain, ear pain Cardiovascular: No chest pain, palpitations, or leg edema Respiratory: No shortness of breath, wheezing, cough GI: +abdominal bloating. No abdominal pain, nausea, vomiting, diarrhea, constipation, melena, hematochezia : +dysuria. No hematuria, increased urinary frequency MSK: No myalgia, back pain Neuro: No headaches, weakness, paresthesias Skin: No rashes or lesions Physical Exam Vital Signs: Vital Signs: Last Vital Signs Temp 98.1 F 05/04/22 07:12 Pulse 80 05/04/22 07:12 Resp 17 05/04/22 07:12 BP 110/75 05/04/22 07:12 Pulse Ox 96 05/04/22 07:12 O2 Del Method 05/04/22 07:12 BMI result Body Mass Index 29.1 Constitutional - Awake and Alert, No apparent distress Eyes - PERRLA, EOMI Cardiovascular - S1S2, RRR, No edema Respiratory - Normal lung expansion, Normal respiratory effort, No respiratory distress, CTA bilaterally Gastrointestinal - softly distended. NT, +BS; No rebound or guarding - No CVA tenderness Extremities - no calf tenderness bilaterally, no swelling Skin - Warm/Dry Neurological - Alert & oriented x3, 5/5 strength BUE and BLE Psychological - Appropriate affect Objective Data Active Medications Acetaminophen (Acetaminophen 325 Mg Tablet) 650 mg PO Q6H PRN PRN Reason: Pain, Mild, fever Last Admin: 05/04/22 03:45 Dose: 650 mg Documented By: LEXI Atorvastatin Calcium (Atorvastatin Calcium 20 Mg Tablet) 20 mg PO BEDTIME RADHA Last Admin: 05/03/22 20:25 Dose: 20 mg Documented By: LEXI Dextrose (Dextrose 50 % 25 Gm/50 Ml Syringe) 25 gm IVPUSH Q15M PRN; Protocol PRN Reason: per Hypoglycemia Standing Ord. Docusate Sodium (Docusate Sodium 100 Mg Capsule) 100 mg PO DAILY PRN PRN Reason: Constipation Enoxaparin Sodium (Enoxaparin Sodium 40 Mg/0.4 Ml Syringe) 40 mg SUBCUT Q24H [facility] Last Admin: 05/03/22 14:12 Dose: 40 mg Documented By: JADE Gabapentin (Gabapentin 300 Mg Capsule) 300 mg PO DAILY@0900 [facility] Last Admin: 05/04/22 08:26 Dose: 300 mg Documented By: CHAVEZ Gabapentin (Gabapentin 600 Mg Tablet) 600 mg PO BEDTIME [facility] Last Admin: 05/03/22 20:25 Dose: 600 mg Documented By: LEXI Glucose (Glucose Gel 15 Gm Gel..Gram.) 15 gm PO Q15M PRN; Protocol PRN Reason: per Hypoglycemia Standing Ord. Levofloxacin (Levaquin) 750 mg in 150 mls @ 100 mls/hr IV Q24H [facility] Insulin Human Lispro (Insulin Lispro 100 Unit/Ml 3 Ml Vial) 0 unit SUBCUT QIDACHS [facility]; Protocol Last Admin: 05/04/22 07:29 Dose: Not Given Documented By: CHAVEZ Non-Admin Reason: No Insulin Coverage Ondansetron HCl (Ondansetron Hcl 4 Mg/2 Ml Vial) 4 mg IVPUSH Q8H PRN PRN Reason: Nausea and Vomiting Pharmacy Consult (Consult Rx Perform Med Rec) 1 each MISCELLANE ONCE PRN PRN Reason: Consult order Sodium Chloride (0.9 % Sodium Chloride Flush 3 Ml Syringe) 3 ml IVFLUSH QSHIFT [facility] Last Admin: 05/04/22 07:31 Dose: 3 ml Documented By: CHAVEZ Labs CBC & Chem 7: 05/04/22 06:08 05/04/22 06:08 Labs: Laboratory Results - last 24 hr 05/03/22 05/03/22 05/03/22 11:11 11:11 11:11 MCV 85.7 MCH 28.8 MCHC 33.5 RDW 12.4 Plt Count 292 MPV 8.8 L Immature Gran % (Auto) 0.9 H Neut % (Auto) 80.3 H Lymph % (Auto) 10.1 L [place] % (Auto) 8.1 Eos % (Auto) 0.1 Baso % (Auto) 0.5 Lymph # (Auto) 1.8 [place] # (Auto) 1.4 H Eos # (Auto) 0.0 Baso # (Auto) 0.1 Abs Immat Gran (auto) 0.16 H Absolute Neuts (auto) 13.9 H Absolute Nucleated RBC 0.000 Nucleated RBC % (auto) 0.0 Anion Gap 15 Estim Creat Clear Calc 105.5 Estimated GFR > 60 POC Glucose Random Glucose 132 H Lactic Acid Calcium 9.3 Total Bilirubin 1.4 H Direct Bilirubin 0.5 AST 19 ALT 43 H Alkaline Phosphatase 115 Total Protein 8.0 Albumin 4.4 Lipase 10 Urine Color Dark Yellow Urine Appearance Clear Urine pH 5.5 Ur Specific [place] >= 1.030 H Urine Protein 30 (1+) H Urine Glucose (UA) Negative Urine Ketones Trace Urine Blood Negative Urine Nitrite Negative Ur Leukocyte Esterase Moderate (2+) H Urine RBC 3-5 H Urine WBC >50 H Ur Squamous Epith Cells 0-2 Urine Bacteria None Seen Hyaline Casts 0-2 Chlam trachomat DNA PCR COVID-19 (YAN) COVID-19 Clin Com N.gonorrhoeae DNA (PCR) 05/03/22 05/03/22 05/03/22 11:11 11:12 12:30 MCV MCH MCHC RDW Plt Count MPV Immature Gran % (Auto) Neut % (Auto) Lymph % (Auto) [place] % (Auto) Eos % (Auto) Baso % (Auto) Lymph # (Auto) [place] # (Auto) Eos # (Auto) Baso # (Auto) Abs Immat Gran (auto) Absolute Neuts (auto) Absolute Nucleated RBC Nucleated RBC % (auto) Anion Gap Estim Creat Clear Calc Estimated GFR POC Glucose Random Glucose Lactic Acid 1.5 Calcium Total Bilirubin Direct Bilirubin AST ALT Alkaline Phosphatase Total Protein Albumin Lipase Urine Color Urine Appearance Urine pH Ur Specific [place] Urine Protein Urine Glucose (UA) Urine Ketones Urine Blood Urine Nitrite Ur Leukocyte Esterase Urine RBC Urine WBC Ur Squamous Epith Cells Urine Bacteria Hyaline Casts Chlam trachomat DNA PCR NOT DETECTED COVID-19 (YAN) Negative COVID-19 Clin Com See Note N.gonorrhoeae DNA (PCR) NOT DETECTED 05/03/22 05/03/22 05/04/22 16:31 21:08 06:08 MCV 86.2 MCH 28.7 MCHC 33.3 RDW 12.1 Plt Count 267 MPV 8.9 L Immature Gran % (Auto) 0.8 H Neut % (Auto) 70.6 Lymph % (Auto) 17.3 L [place] % (Auto) 9.3 Eos % (Auto) 1.4 Baso % (Auto) 0.6 Lymph # (Auto) 2.4 [place] # (Auto) 1.3 H Eos # (Auto) 0.2 Baso # (Auto) 0.1 Abs Immat Gran (auto) 0.11 H Absolute Neuts (auto) 9.7 H Absolute Nucleated RBC 0.000 Nucleated RBC % (auto) 0.0 Anion Gap Estim Creat Clear Calc Estimated GFR POC Glucose 111 118 H Random Glucose Lactic Acid Calcium Total Bilirubin Direct Bilirubin AST ALT Alkaline Phosphatase Total Protein Albumin Lipase Urine Color Urine Appearance Urine pH Ur Specific [place] Urine Protein Urine Glucose (UA) Urine Ketones Urine Blood Urine Nitrite Ur Leukocyte Esterase Urine RBC Urine WBC Ur Squamous Epith Cells Urine Bacteria Hyaline Casts Chlam trachomat DNA PCR COVID-19 (YAN) COVID-19 Clin Com N.gonorrhoeae DNA (PCR) 05/04/22 05/04/22 06:08 07:10 MCV MCH MCHC RDW Plt Count MPV Immature Gran % (Auto) Neut % (Auto) Lymph % (Auto) [place] % (Auto) Eos % (Auto) Baso % (Auto) Lymph # (Auto) [place] # (Auto) Eos # (Auto) Baso # (Auto) Abs Immat Gran (auto) Absolute Neuts (auto) Absolute Nucleated RBC Nucleated RBC % (auto) Anion Gap 13 Estim Creat Clear Calc 118.2 Estimated GFR > 60 POC Glucose 112 Random Glucose 118 H Lactic Acid Calcium 8.4 D Total Bilirubin Direct Bilirubin AST ALT Alkaline Phosphatase Total Protein Albumin Lipase Urine Color Urine Appearance Urine pH Ur Specific [place] Urine Protein Urine Glucose (UA) Urine Ketones Urine Blood Urine Nitrite Ur Leukocyte Esterase Urine RBC Urine WBC Ur Squamous Epith Cells Urine Bacteria Hyaline Casts Chlam trachomat DNA PCR COVID-19 (YAN) COVID-19 Clin Com N.gonorrhoeae DNA (PCR) Assessment and Plan (1) Acute prostatitis: Status: Acute (2) Sepsis: Status: Acute Plan 46-year-old male with history of amu-[id number] type 2 diabetes, hyperlipidemia, diabetic neuropathy, mild intermittent asthma to be admitted for acute prostatitis with sepsis. #Sepsis- secondary to acute prostatitis -WBC trending down, now 13.9. Tachycardia improving, was 96 early am, now 80. Lactic acid normal. No evidence end organ dysfunction or hypotension. No severe sepsis/shock -Continue telemetry telemetry -Tylenol PRN for fever -Tolerating PO, d/c IVF- received 3L IVF yesterday. Encourage PO fluids -Follow CBC #Acute prostatitis -UA with 2+ leuks, negative nitrites, negative blood, negative bacteria. However, significant diffuse ttp prostate on ED exam -UC and blood cultures pending. -Gonorrhea/chlamydia negative -IV levaquin. Transition to PO pending culures. Will need 4-6 weeks PO abx and close follow up with urology outpt -PRN ondanstron -Advance to diabetic diet. Pt tolerated clears, requesting to eat #Type 2 diabetes- non insulin dependent without hyperglycemia -POC glucose -on Clears, transition to diabetic diet as tolerated -Humalog on SS -Hold metformin #Diabetic neuropathy -Continue gabapentin #Mild intermittent asthma- no acute exacerbation -albuterol prn #HLD -continue statin DVT prophylaxis- lovenox Full code Pt requires ongoing inpt stay for management of acute prostatitis with sepsis requiring IV abx to transition to PO abx pending cultures. Also requiring diet advancement as pt was not tolerating solids. Quality Stroke Does the patient have a stroke diagnosis?: No VTE Prior VTE?: No VTE Risk Level:: Medical - moderate - high VTE Device Contraindication: Treatment Not Indicated VTE Drug Contraindication: N/A - Med Ordered
[2022-05-04] MEDS: levoFLOXacin/D5W 750 MG/150 ML PIGGYBACK 100 MG IV (12:40)
[2022-05-04 14:07] LABS: Glucose, Whole Blood 138 mg/dL (60-115)
[2022-05-04] MEDS: Enoxaparin Sodium 40 MG/0.4 ML SYRINGE SUBCUT (14:53)
--- NOTE | 2022-05-04 15:28 | PC.NURSE ---
PT OFFERS NO COMPLAINTS, HE IS IN HIS ROOM ON HIS PHONE. HE STATES HE HAS LESS PAIN WITH VOIDING.
--- NOTE | 2022-05-04 15:29 | MHC.CM.PN ---
PT IS INDEPDENT SERVCIES ARE INDICATED
[2022-05-04 18:32] LABS: Glucose, Whole Blood 112 mg/dL (60-115)
[2022-05-04 22:00] LABS: Glucose, Whole Blood 125 mg/dL (60-115)
[2022-05-04] MEDS: Gabapentin 600 MG TABLET PO (22:39)
[2022-05-04] MEDS: ondansetron HCL 4 MG/2 ML VIAL IVPUSH (22:39)
[2022-05-04] MEDS: Atorvastatin Calcium 20 MG TABLET PO (22:39)
[2022-05-05] VITALS: BP 115/74; PULSE 76; RESP 17; TEMP 36.1; O2SAT 94
[2022-05-05 03:44] VITALS: BP 114/68; PULSE 88; RESP 18; TEMP 36.4; O2SAT 96
[2022-05-05 07:15] LABS: MANUAL DIFF FLAG NO
[2022-05-05 07:18] LABS: Basophils Absolute Auto 0.1 X10*3/uL (0.0-0.2); Basophils Percent Auto 0.8 % (0-2); Eosinophils Absolute Auto 0.2 X10*3/uL (0.0-0.4); Eosinophils Percent Auto 2.7 % (0-4); Hematocrit 43.3 % (42.0-52.0); Hemoglobin 14.3 g/dl (14.0-18.0); Imm Gran Abs Auto 0.08 X10*3/uL (0.00-0.03); Imm Gran Pct Auto 0.9 % (0.0-0.4); Lymphocytes Absolute Auto 2.5 X10*3/uL (1.2-4.9); Lymphocytes Percent Auto 27.8 % (20-40); Mean Corpuscular Hemoglobin 28.8 pg (27.0-33.0); Mean Corpuscular Volume 87.1 fL (80.0-98.0); Mean Platelet Volume 8.8 fL (9.4-12.4); Monocytes Absolute Auto 0.9 X10*3/uL (0.1-1.2); Monocytes Percent Auto 10.4 % (2-11); Neutrophils Absolute Auto 5.2 x10*3/uL (2.0-8.3); Neutrophils Percent Auto 57.4 % (45-73); Platelet Count 336 X10*3/uL (160-400); Red Blood Count 4.97 X10*6/uL (4.60-5.80); Red Cell Distribution Width 12.1 % (11.0-16.0)
[2022-05-05 07:26] LABS: Glucose, Whole Blood 125 mg/dL (60-115)
[2022-05-05 07:46] LABS: Anion Gap 16 (12-20); Blood Urea Nitrogen 11 mg/dL (9-16); Carbon Dioxide 27 mmol/L (22-29); Chloride 103 mmol/L (96-108); Creatinine Clr Calc Pharmacy 108.1; Estimated Glomerular Filt Rate > 60; Glucose Random 127 mg/dL (60-115); Potassium 4.6 mmol/L (3.3-5.1); Sodium 141 mmol/L (135-145)
[2022-05-05 07:53] LABS: Calcium 9.6 mg/dL (8.4-10.2)
[2022-05-05] MEDS: Acetaminophen 325 MG TABLET 650 MG PO (09:49)
[2022-05-05] MEDS: 0.9 % Sodium Chloride Flush 3 ML SYRINGE IVFLUSH (09:50)
[2022-05-05] MEDS: Gabapentin 300 MG CAPSULE PO (09:50)
[2022-05-05 11:15] LABS: Glucose, Whole Blood 187 mg/dL (60-115)
--- NOTE | 2022-05-05 11:26 | MHC.CM.PN ---
Patient has cbee medically cleared for dc to home today, self care.
[2022-05-05] MEDS: Insulin Lispro 100 UNIT/ML 3 ML VIAL SUBCUT (11:31)
[2022-05-05] MEDS: levoFLOXacin/D5W 750 MG/150 ML PIGGYBACK 100 MG IV (11:32)
[2022-05-05 12:00] VITALS: BP 122/86; PULSE 86; RESP 16; TEMP 36.4; O2SAT 97
--- NOTE | 2022-05-05 12:04 | P.DS_ITS ---
DS: Providers Provider Date of Service: 05/05/22 Date of admission: 05/03/22 13:21 Primary care physician: Unknown Physician DS: Diagnosis Discharge Diagnosis (1) Acute prostatitis: Status: Acute (2) Sepsis: Status: Acute DS: Summary Hospital Course Hospital Course: history of presenting illness Chief Complaint: Dysuria, decreased urinary output, urinary urgency 46-year-old male with history of uwy-wmdcwsk-tqejovybu type 2 diabetes, hyperlipidemia, diabetic neuropathy, mild intermittent asthma presented to the ED this morning for evaluation of urinary symptoms ongoing for the last 2 days.? He is reporting suprapubic pressure during urination with limited urinary output, dysuria, increased urinary frequency, urinary urgency, as well as nausea.? He has been able to tolerate liquids but has not been eating much due to the nausea but denies any associated vomiting.? He denies any fevers at home, chills, abdominal pain, diarrhea, constipation, melena, hematochezia, rectal pressure, shortness of breath, chest pain.? On arrival, patient febrile at 01:01 0.9, given 650 mg p.o. Tylenol.? Tachycardic to 125.? Initially BP 143/83, currently 99/65.? No hypoxia.? WBC 17.4.? Creatinine 0.84, BUN 11, electrolyte levels normal.? Glucose 132, bilirubin 1.4.? UA significant for 2+ leukocytes, negative for blood, negative nitrites, no bacteria.? Gonorrhea and chlamydia testing pending.? On exam, ED provider noted enlarged, diffusely tender prostate.? CT abdomen/pelvis with suggestion of mild diffuse bladder wall thickening with mild fat stranding adjacent to the bladder as well as enlarged prostate gland and colonic diverticulosis and hepatic steatosis.? He has been given 2381 mL IV normal saline and 750 mg IV Levaquin to treat acute prostatitis.? Patient should be admitted for acute prostatitis with sepsis. hospital course 46-year-old male with history of eok-eurmiik-dcduoaqmb type 2 diabetes, hyperlipidemia, diabetic neuropathy, mild intermittent asthma to be admitted for acute prostatitis with sepsis. #Sepsis- secondary to acute prostatitis, patient admitted to intermediate care unit treated with IV Levaquin WBC normalized tachycardia resolved, there was no and organ dysfunction noted, blood cultures x2 remain negative urine culture grew Citrobacter, chlamydia and gonorrhea cultures are negative,since patient is feeling better he is being discharged home on Levaquin 500 mg daily for 4 weeks he is recommended to follow-up with PCP and have a repeat urinalysis in 1 week if urine is negative then 4 weeks of antibiotics would be sufficient but if noted to have persistent positive UA then with need additional 2 more weeks of antibiotics #Type 2 diabetes- non insulin dependent without hyperglycemia, recommend to continue metformin and diabetic diet #Diabetic neuropathy -Continue gabapentin #Mild intermittent asthma- no acute exacerbation, on albuterol prn #HLD -continue statin Time Spent with Patient Time attestation: Total time spent providing and/or coordinating discharge services: Discharge coordination time: Greater than 30 minutes Quality: Safe Use of Opioids Does Pt have an Active Cancer Diagnosis on the Problem List?: No Quality: Stroke Does the patient have a stroke diagnosis?: No Physical Exam Vital Signs: Vital Signs: Last Vital Signs Temp 97.6 F 05/05/22 03:44 Pulse 88 05/05/22 03:44 Resp 18 05/05/22 03:44 BP 114/68 05/05/22 03:44 Pulse Ox 96 05/05/22 03:44 O2 Del Method 05/05/22 03:44 BMI result Body Mass Index 29.1 Const: Other: Constitutional - Awake and Alert, No apparent distress neck supple Cardiovascular - S1S2, RRR, No edema Respiratory - Normal lung expansion, Normal respiratory effort, No respiratory distress, CTA bilaterally Gastrointestinal - softly distended. NT, +BS; No rebound or guarding - No CVA tenderness Extremities - no swelling Skin - Warm/Dry Neurological - Alert & oriented x3, 5/5 strength BUE and BLE Psychological - Appropriate affect DS: Data Data Completed and Pending Labs on day of discharge: Laboratory Results - last 24 hr 05/04/22 05/04/22 05/04/22 13:59 18:28 21:52 WBC RBC Hgb Hct MCV MCH MCHC RDW Plt Count MPV Immature Gran % (Auto) Neut % (Auto) Lymph % (Auto) [place] % (Auto) Eos % (Auto) Baso % (Auto) Lymph # (Auto) [place] # (Auto) Eos # (Auto) Baso # (Auto) Abs Immat Gran (auto) Absolute Neuts (auto) Absolute Nucleated RBC Nucleated RBC % (auto) Sodium Potassium Chloride Carbon Dioxide Anion Gap BUN Creatinine Estim Creat Clear Calc Estimated GFR POC Glucose 138 H 112 125 H Random Glucose Calcium 05/05/22 05/05/22 05/05/22 06:53 06:53 07:22 WBC 9.0 RBC 4.97 Hgb 14.3 Hct 43.3 MCV 87.1 MCH 28.8 MCHC 33.0 RDW 12.1 Plt Count 336 D MPV 8.8 L Immature Gran % (Auto) 0.9 H Neut % (Auto) 57.4 Lymph % (Auto) 27.8 [place] % (Auto) 10.4 Eos % (Auto) 2.7 Baso % (Auto) 0.8 Lymph # (Auto) 2.5 [place] # (Auto) 0.9 Eos # (Auto) 0.2 Baso # (Auto) 0.1 Abs Immat Gran (auto) 0.08 H Absolute Neuts (auto) 5.2 Absolute Nucleated RBC 0.000 Nucleated RBC % (auto) 0.0 Sodium 141 Potassium 4.6 Chloride 103 Carbon Dioxide 27 Anion Gap 16 BUN 11 Creatinine 0.82 Estim Creat Clear Calc 108.1 Estimated GFR > 60 POC Glucose 125 H Random Glucose 127 H D Calcium 9.6 D 05/05/22 11:11 WBC RBC Hgb Hct MCV MCH MCHC RDW Plt Count MPV Immature Gran % (Auto) Neut % (Auto) Lymph % (Auto) [place] % (Auto) Eos % (Auto) Baso % (Auto) Lymph # (Auto) [place] # (Auto) Eos # (Auto) Baso # (Auto) Abs Immat Gran (auto) Absolute Neuts (auto) Absolute Nucleated RBC Nucleated RBC % (auto) Sodium Potassium Chloride Carbon Dioxide Anion Gap BUN Creatinine Estim Creat Clear Calc Estimated GFR POC Glucose 187 H Random Glucose Calcium Preliminary micro results at discharge 05/03/22 11:11 Blood Culture - Preliminary Blood - Venous No growth after 24 hours. 05/03/22 11:12 Blood Culture - Preliminary Blood - Venous No growth after 24 hours. Discharge Plan Discharge Anticipated Discharge Date/Time: 05/05/22 10:38 Patient Disposition: Home, Self-Care Discharge Diagnosis: sepsis due to acute prostatitis Referrals: Physician,Unknown J [Primary Care Provider] - 1 Week Discharge Medications: New levofloxacin 500 mg tablet 500 mg PO DAILY 28 Days Qty: 26 0RF Continued metformin 500 mg tablet 500 mg PO BID 30 Days Qty: 60 2RF gabapentin 600 mg tablet 600 mg PO BEDTIME atorvastatin 20 mg tablet 20 mg PO QPM albuterol sulfate [ProAir HFA] 90 mcg/actuation HFA aerosol inhaler 2 puff INHALATION Q4-6H PRN (Reason: Shortness Of Breath Or Wheezing) gabapentin 300 mg Capsule 300 mg PO DAILY@0900 Advil PM 200-38 mg Tablet 2 cap PO BEDTIME PRN (Reason: Pain) Discharge Orders: Discharge Order (Routine); Ordered 05/05/22 Ordered By: Radha Poe Diet: Diabetic diet Activity on Discharge: As tolerated Stand Alone Forms: Patient Portal Discharge page Care Plan Goals: acute prostatitis take Levaquin 500 mg daily for 26 more days, outpatient follow-up with pcp check ua in 1 week if neg four weeks of antibiotics are fine Health Concerns: diabetes mellitus take all home medication follow diabetic diet Plan of Treatment: outpatient follow-up with primary care physician and Urology Dr. Bearden call to make an appointment Assessment: as above
[2022-05-05] MEDS: Phenazopyridine HCL 100 MG TABLET PO (12:39)
[2022-05-05] MEDS: Enoxaparin Sodium 40 MG/0.4 ML SYRINGE SUBCUT (12:39)
--- NOTE | 2022-05-05 13:51 | PC.NURSE ---
Pt d/c'd home w/self care, d/c paperwork reviewed, all questions answered, IV and [employer] life insurance d/c'd, belongings sent home w/pt, will f/u with primary team.
== END 2022-05-05 13:53 | disposition home or self-care (01) | DRG 720 ==
LOC: HO.ED 12:30 → HO.EDOVER 13:36 → HO.IMC 05-04 19:53
PROVIDERS: Admitting Provider Physician Assistant; Emergency Provider Emergency Medicine; Visit Provider Hospitalist
DX: A41.9 Sepsis, unspecified organism (principal); E11.40 Type 2 diabetes mellitus with diabetic neuropathy, unspecified; N41.0 Acute prostatitis; E78.5 Hyperlipidemia, unspecified; J45.20 Mild intermittent asthma, uncomplicated; Z20.822 Contact with and (suspected) exposure to COVID-19; Z87.440 Personal history of urinary (tract) infections; Z88.0 Allergy status to penicillin; Z79.84 Long term (current) use of oral hypoglycemic drugs; Z79.899 Other long term (current) drug therapy
CPT/HCPCS: 36415; 74176; 80048; 80076; 81001; 82947; 83605; 83690; 85025; 87040; 87086; 87088; 87186; 87491; 87591; 87635; 99285; J1650; J1956; J2405

== ENCOUNTER 2023-03-20 09:45 | Outpatient (REF) | payer MEDICAID, OTHER, SELFPAY ==
[2023-03-20 11:43] LABS: MANUAL DIFF FLAG NO
[2023-03-20 12:06] LABS: Basophils Absolute Auto 0.1 X10*3/uL (0.0-0.2); Basophils Percent Auto 1.2 % (0-2); Eosinophils Absolute Auto 0.4 X10*3/uL (0.0-0.4); Eosinophils Percent Auto 4.7 % (0-4); Hematocrit 46.6 % (42.0-52.0); Hemoglobin 15.8 g/dl (14.0-18.0); Imm Gran Abs Auto 0.09 X10*3/uL (0.00-0.03); Imm Gran Pct Auto 1.2 % (0.0-0.4); Lymphocytes Absolute Auto 3.2 X10*3/uL (1.2-4.9); Lymphocytes Percent Auto 41.5 % (20-40); Mean Corpuscular HGB Conc 33.9 g/dl (31.0-36.0); Mean Corpuscular Hemoglobin 29.2 pg (27.0-33.0); Mean Platelet Volume 9.7 fL (9.4-12.4); Monocytes Absolute Auto 0.6 X10*3/uL (0.1-1.2); Monocytes Percent Auto 7.7 % (2-11); Neutrophils Absolute Auto 3.3 x10*3/uL (2.0-8.3); Neutrophils Percent Auto 43.7 % (45-73); Platelet Count 308 X10*3/uL (160-400); Red Blood Count 5.42 X10*6/uL (4.60-5.80); Red Cell Distribution Width 12.2 % (11.0-16.0); White Blood Count 7.6 X10*3/uL (4.8-10.8)
[2023-03-20 13:03] LABS: Alanine Aminotransferase 39 U/L (0-40); Albumin Level 4.2 g/dL (3.5-5.0); Alkaline Phosphatase 77 U/L (39-117); Anion Gap 13 (12-20); Aspartate Amino Transferase 20 U/L (5-37); Bilirubin Direct 0.2 mg/dL (0.0-0.5); Bilirubin Total 0.4 mg/dL (0.0-1.0); Blood Urea Nitrogen 19 mg/dL (9-16); Calcium 10.1 mg/dL (8.4-10.2); Carbon Dioxide 24 mmol/L (22-29); Chloride 103 mmol/L (96-108); Cholesterol 236 mg/dL (<200); Estimated Glomerular Filt Rate > 60; Glucose Random 164 mg/dL (60-115); HDL Cholesterol 46 mg/dL (>40); LDL Cholesterol Calculated 141 mg/dL (<100); Potassium 4.2 mmol/L (3.3-5.1); Sodium 136 mmol/L (135-145); Total Protein 7.6 g/dL (6.5-8.0); Triglycerides 247 mg/dL (<150)
[2023-03-20 13:04] LABS: Vitamin D 25-OH Total 45.4 ng/mL (>30)
[2023-03-20 13:13] LABS: HIV AB/AG Nonreactive (Nonreactive); HIV Num 1 0.05 S/CO (0.00-0.99); ~HepC Num1 0.06 S/CO (0.00-0.79); ~Hepatitis C Antibody Nonreactive (Nonreactive)
[2023-03-20 13:15] LABS: Creatinine Urine 124.76 mg/dL
== END 2023-03-20 09:46 | disposition home or self-care (01) ==
LOC: HO.HHCL 09:45
PROVIDERS: Visit Provider Internal Medicine
DX: N52.9 Male erectile dysfunction, unspecified (principal); E11.40 Type 2 diabetes mellitus with diabetic neuropathy, unspecified; Z79.4 Long term (current) use of insulin
CPT/HCPCS: 36415; 80048; 80061; 80076; 82043; 82306; 82570; 85025; 86803; 87389